=== PATIENT | male | born 1980 | race Caucasian/White ===

== ENCOUNTER 2016-07-08 12:03 | Emergency (ER) | payer SELFPAY ==
[2016-07-08 12:29] LABS: BASOPHILS ABSOLUTE 0.06 10/3/uL (0.0-0.16); EOSINOPHILS 2.4 %; EOSINOPHILS ABSOLUTE 0.07 10/3/uL (0.0-0.53); LYMPHOCYTES 15.3 %; LYMPHOCYTES ABSOLUTE 0.45 10/3/uL (0.67-4.30); MEAN PLATELET VOLUME 9.2 fL (9.2-13.0); MONOCYTES 15.3 %; MONOCYTES ABSOLUTE 0.45 10/3/uL (0.21-1.20); NEUTROPHILS ABSOLUTE 1.92 10/3/uL (2.02-8.40); RED CELL COUNT 3.99 10/6/uL (4.7-6.1)
[2016-07-08 12:30] LABS: HEMATOCRIT 36.4 % (40.0-51.0); MEAN CORPUSCULAR HEMOGLOB 30.1 pg (26.0-34.0); MEAN CORPUSCULAR VOLUME 91.2 fL (80-100); PLATELET COUNT 64 10/3/uL (150-400)
[2016-07-08 12:32] LABS: MANUAL DIFF NO %
[2016-07-08 12:36] LABS: PARTIAL THROMBO TIME 30.6 SEC (22.5-37.2); PROTIME (NOT ORD) 13.1 SEC (12.0-14.5)
[2016-07-08 12:44] LABS: ALBUMIN 3.6 G/DL (3.5-5.0); ALKALINE PHOSPHATASE 66 U/L (45-117); BUN (BLOOD UREA NITROGEN) 8 MG/DL (6-23); CALCIUM, SERUM 7.9 MG/DL (8.5-10.4); CHEST PAIN PROFILE TAT 0 Hrs 21 Mins; CHLORIDE, SERUM 106 MMOL/L (96-112); CO2 (CARBON DIOXIDE) 25 MMOL/L (24-34); CREATININE 0.57 MG/DL (0.70-1.30); GFR AFRICAN AMERICAN 153 ML/MIN (>=60); GFR NON AFRICAN AMERICAN 132 ML/MIN (>=60); GLUCOSE, SERUM 99 MG/DL (60-99); POTASSIUM, SERUM 4.1 MMOL/L (3.5-5.3); SGOT(AST) 217 U/L (5-40); SGPT(ALT) 126 U/L (5-65); SODIUM, SERUM 142 MMOL/L (135-148); TOTAL PROTEIN 7.1 G/DL (6.0-8.5); TROPONIN I <0.02 NG/ML (<0.05)
[2016-07-08 12:45] LABS: DIRECT BILIRUBIN 0.1 MG/DL (0.0-0.4); INDIRECT BILIRUBIN(NOT ORDER) 0.3 MG/DL (0.1-0.9); TOTAL BILIRUBIN 0.4 MG/DL (0-1.2)
[2016-07-08 12:52] LABS: PLATELET ESTIMATE DEC (ADEQUATE)
[2016-07-08 12:53] LABS: RBC MORPHOLOGY NORM (NORMAL)
== END 2016-07-08 16:24 | disposition home or self-care (01) ==
LOC: ER 12:03
PROVIDERS: Emergency Medicine
DX: R07.9 Chest pain, unspecified (principal); R10.9 Unspecified abdominal pain; F10.10 Alcohol abuse, uncomplicated; D69.6 Thrombocytopenia, unspecified; R20.2 Paresthesia of skin; Z86.19 Personal history of other infectious and parasitic diseases
CPT/HCPCS: 70450; 71010; 74176; 80048; 80076; 83735; 84484; 85025; 85610; 85730; 99285